=== PATIENT | female | born 1995 | race African-American/Black ===

== ENCOUNTER 2018-11-28 15:51 | Outpatient (CLI) | payer BC, OTHER | END 2018-11-28 16:42 | disposition home or self-care (01) | LOC: LC 15:51 | PROVIDERS: ATTEND Obstetrics & Gynecology | PROC: 4A1HXCZ Monitoring of Products of Conception, Cardiac Rate, External Approach (ICD-10-PCS; principal; 2018-11-28) | DX: O99.89 Other specified diseases and conditions complicating pregnancy, childbirth and the puerperium (principal); M54.9 Dorsalgia, unspecified; Z3A.24 24 weeks gestation of pregnancy ==

== ENCOUNTER 2019-02-24 14:48 | Outpatient (CLI) | payer BC, OTHER ==
--- NOTE | 2019-02-24 15:35 | Non Stress Test Report ---
Non Stress Test Datetime Report Generated by CPN: 02/24/2019 15:34 DEMOGRAPHIC EGA NST: 37.2 INDICATION Indication for Study: Intrauterine Growth Restriction; Ordered by Provider; Other VITAL SIGNS Temperature - NST: 98.5 RESP - NST: 16 (Annotations: Data stored by CPN on behalf of user) MONITORING Monitor Explained: Monitor Explained; Test Explained; Patient Verbalized Understanding Time on Monitor: 02/24/2019 14:58 Time off Monitor: 02/24/2019 15:25 NST Duration: 27 NST INTERVENTIONS NST Interventions: PO Hydration Physician Notified NST: C Najera CNM BABY A: [id number] BABY A Movement : Present Contraction Frequency : irregular FHR Baseline : 135 Accelerations : 15X15 Decelerations : None Variability : Moderate 6-25bpm NST Review: Meets Criteria for Reactive NST NST Results: Reactive NST REPORT Report Trigger: Send Report
== END 2019-02-24 15:28 | disposition home or self-care (01) ==
LOC: LC 14:48
PROVIDERS: ATTEND Obstetrics & Gynecology
PROC: 4A1HXCZ Monitoring of Products of Conception, Cardiac Rate, External Approach (ICD-10-PCS; principal; 2019-02-24)
DX: Z34.93 Encounter for supervision of normal pregnancy, unspecified, third trimester (principal)
CPT/HCPCS: 59025

== ENCOUNTER 2019-03-08 18:44 | Inpatient (IN) | payer BC, OTHER ==
[2019-03-08] MEDS ORDERED: RINGERS SOLUTION,LACTATED 1,000 ML IV PRN (19:31)
[2019-03-08] MEDS ORDERED: DINOPROSTONE 10 MG VAGINAL INSERT.SR PV SCH (19:45)
[2019-03-08 19:57] LABS: APPEARANCE,URINE SLIGHTLY-CLOUDY; BILIRUBIN,URINE NEGATIVE (NEGATIVE); COLOR,URINE YELLOW; GLUCOSE, URINE NEGATIVE (NEGATIVE); KETONES,URINE NEGATIVE (NEGATIVE); LEUKOCYTE ESTERASE,URINE TRACE (NEGATIVE); NITRITE,URINE NEGATIVE (NEGATIVE); PROTEIN,URINE 30 mg/dL (NEGATIVE); URINE SPECIFIC GRAVITY 1.026; UROBILINOGEN,URINE NEGATIVE mg/dL (<2.0)
[2019-03-08] MEDS ORDERED: DINOPROSTONE 10 MG VAGINAL INSERT.SR ONE (19:57)
[2019-03-08 20:12] LABS: URINE AMPHETAMINES SCREEN NEGATIVE; URINE BARBITURATES SCREEN NEGATIVE; URINE BENZODIAZEPINES SCREEN NEGATIVE; URINE COCAINE SCREEN NEGATIVE; URINE MARIJUANA (THC) SCREEN NEGATIVE; URINE METHADONE SCREEN NEGATIVE; URINE PHENCYCLIDINE SCREEN NEGATIVE
[2019-03-08 20:22] LABS: ABSOLUTE EOSINOPHILS # (AUTO) 0.2 10^3/uL (0.0-0.6); ABSOLUTE MONOCYTES (AUTO) 0.6 10^3/uL (0.1-1.4); ABSOLUTE NEUT (AUTO) 5.7 10^3/uL (1.7-8.2); BASOPHILS % (AUTO) 0.3 % (0-2); EOSINOPHILS % (AUTO) 1.9 % (0-6); HEMATOCRIT 28.6 % (36.0-47.0); HEMOGLOBIN 9.2 g/dL (12.0-15.5); LYMPHOCYTES % (AUTO) 23.2 % (13-45); MEAN CORPUSCULAR HEMOGLOBIN 28.5 pg (27.0-33.4); MEAN CORPUSCULAR HGB CONC 32.3 g/dL (32.0-36.0); MEAN CORPUSCULAR VOLUME 88 fl (80-97); MONOCYTES % (AUTO) 7.3 % (3-13); PLATELET COUNT 149 10^3/uL (150-450); RED BLOOD COUNT 3.23 10^6/uL (3.72-5.28); RED CELL DISTRIBUTION WIDTH 13.8 % (11.5-14.0); SEGMENTED NEUTROPHILS % (AUTO) 67.3 % (42-78); TOTAL CELLS COUNTED % (AUTO) 100 %; WHITE BLOOD COUNT 8.5 10^3/uL (4.0-10.5)
[2019-03-08] MEDS ORDERED: ACETAMINOPHEN 325 MG TABLET ONE (21:23)
[2019-03-08] MEDS ORDERED: ACETAMINOPHEN 325 MG TABLET PO ONE (21:30)
[2019-03-09] MEDS ORDERED: ZOLPIDEM TARTRATE 5 MG TABLET ONE (00:44)
[2019-03-09] MEDS ORDERED: OXYTOCIN/NORMAL SALINE 20 UNIT/1,000 ML RTUINJ ONE (07:00)
[2019-03-09] MEDS ORDERED: OXYTOCIN 10 UNIT/ML VIAL ONE (07:00)
[2019-03-09] MEDS ORDERED: MISOPROSTOL 0.2 MG TABLET ONE (07:00)
[2019-03-09] MEDS ORDERED: LIDOCAINE 1% INJ-PF (10 MG/ML) 30 ML SDV ONE (07:00)
--- NOTE | 2019-03-09 07:02 | Admission Physical ---
Datetime Report Generated by CPN: 03/09/2019 07:02 CURRENT ADMISSION Chief Complaint: Scheduled Induction of Labor Indication for Induction: IUGR Indication for Induction- Other: 3% Admit Impression : Term, Intrauterine ; No Active Labor; Induction of Labor Admit Plan: Admit to Unit; Initiate Labor Induction Protocol Admit Plan- Other: cervidil ALLERGIES Medication Allergies: No Medication Allergies: No Known Allergies (02/24/2019) Latex: No Latex Allergies OBSTETRICAL HISTORY EDC: 03/15/2019 00:00 : 2 Para: 1 Term: 1 : 0 SAB: 0 IAB: 0 Ectopic: 0 Livin Cesareans: 0 VBACs: 0 Multiple Births: 0 Gestational Diabetes: No Rh Sensitization: No Incompetent Cervix: No MEGHA: No Infertility: No ART Treatment: No Uterine Anomaly: No IUGR: No Hx Previous C/S: No Macrosomia: No Hx Loss/Stillborn: No PIH: No Hx : No Placenta Previa/Abruption: No Depression/PP Depression: No PTL/PROM: No Post Hemorrhage: No Current Procedures: Ultrasound SEE RECORDS Alcohol: No Marijuana : No Cocaine: No Other Illicit Drugs: No MEDICAL HISTORY Diabetes: No Blood Transfusion: No Pulmonary Disease (Asthma, TB): No Breast Disease: No Hypertension: No 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 Surgery: No Heart Disease: No Hosp/Surgery: No Autoimmune Disorder: No Anesthetic Complications: No Kidney Disease: No Abnormal Pap Smear: No Neuro/Epilepsy: No Psychiatric Disorders: No Other Medical Diseases: No Hepatitis/Liver Disease: No Significant Family History: No Varicosities/Phlebitis: No Trauma/Violence : No Thyroid Dysfunction: No INFECTIOUS HISTORY Gonorrhea: No Genital Herpes: Yes Chlamydia: No Tuberculosis: No Syphilis: No Hepatitis: No HIV/AIDS Exposure: No Rash or Viral Illness: No HPV: No PHYSICAL EXAM General: Normal HEENT: Normal Neurologic: Normal Thyroid: Normal Heart: Normal Lungs: Normal Breast: Normal Back: Normal Abdomen: Normal Genitourinary Exam: Normal Extremities: Normal DTRs: Normal Pelvic Type: Adequate Vital Signs: Reviewed VAGINAL EXAM Dilatation: 1 Effacement: 70 Station: -3 FETUS A EGA: 39.1 Monitoring: External US FHR- Baseline: 140 Variability: Moderate 6-25bpm Accelerations: 15X15 Decelerations: None FHR Category: Category I Estimated Weight (gm): 2300 Presentation: Vertex PLANS FOR LABOR AND DELIVERY Labor and Delivery: None Pain Management: Epidural Feeding Preference: Breast Benefit of Breast Feed Discussed: Yes INFORMED CONSENT Signature: with User ID: [email or web address]
[2019-03-09] MEDS ORDERED: ACETAMINOPHEN 325 MG TABLET PO ONE (09:20)
[2019-03-09] MEDS ORDERED: ACETAMINOPHEN 325 MG TABLET ONE (09:21)
[2019-03-09] MEDS ORDERED: PENICILLIN G-K 5 MILLION UNIT VIAL IV ONE (09:31)
[2019-03-09] MEDS ORDERED: PENICILLIN G-K 5 MILLION UNIT VIAL ONE ×2 (09:33→13:45)
[2019-03-09] MEDS ORDERED: NALBUPHINE HCL INJ 10 MG/1 ML AMPULE INJ ONE (10:02)
[2019-03-09] MEDS ORDERED: OXYTOCIN/NORMAL SALINE 20 UNIT/1,000 ML RTUINJ IV PRN ×2 (10:02→15:37)
[2019-03-09] MEDS ORDERED: NALBUPHINE HCL INJ 10 MG/1 ML AMPULE ONE (10:18)
[2019-03-09] MEDS ORDERED: PHENYLEPHRINE HCL INJ/PF 10 MG/1 ML SDV ONE (14:59)
[2019-03-09] MEDS ORDERED: FENTANYL CITRATE INJ/PF 100 MCG/2 ML AMPUL ONE (14:59)
[2019-03-09] MEDS ORDERED: BUPIVACAINE HCL 0.25 % INJ/PF (2.5 MG/1 ML) 30 ML VIAL ONE (15:00)
[2019-03-09] MEDS ORDERED: EPHEDRINE SULFATE INJ 50 MG/1 ML AMPULE ONE (15:00)
[2019-03-09] MEDS ORDERED: FENTANYL/BUPIVACAINE/NS/PF 0 MCG/0 ML RTUINJ EPI ONE (15:00)
[2019-03-09] MEDS ORDERED: ZOLPIDEM TARTRATE 5 MG TABLET PO PRN (15:37)
[2019-03-09] MEDS ORDERED: DIPH/PERTUSS(ACELL)/TETANUS VAC/PF 0.5 ML SYR (>=10YO) IM PRN (15:37)
[2019-03-09] MEDS ORDERED: BENZOCAINE/MENTHOL AEROSOL SPRAY 56 ML TOP PRN (15:37)
[2019-03-09] MEDS ORDERED: NA PHOS,M-B/NA PHOS,DI-BA (ADULT) 133 ML ENEMA PR PRN (15:37)
[2019-03-09] MEDS ORDERED: PROMETHAZINE HCL 25 MG TABLET PO PRN (15:37)
[2019-03-09] MEDS ORDERED: MAGNESIUM HYDROXIDE SUSP 30 ML UDCUP PO PRN (15:37)
[2019-03-09] MEDS ORDERED: DIPHENHYDRAMINE HCL 25 MG CAPSULE PO PRN (15:37)
[2019-03-09] MEDS ORDERED: MEASLES,MUMPS&RUBELLA VACC/PF 0.5 ML VIAL SUBCUT PRN (15:37)
[2019-03-09] MEDS ORDERED: ACETAMINOPHEN WITH CODEINE #3 TABLET PO PRN (15:37)
[2019-03-09] MEDS ORDERED: PROMETHAZINE HCL INJ 25 MG/1 ML VIAL IV PRN (15:37)
[2019-03-09] MEDS ORDERED: DIBUCAINE 1% OINTMENT 56 GM TP PRN (15:37)
[2019-03-09] MEDS ORDERED: ACETAMINOPHEN 650 MG SUPP.RECT PR PRN (15:37)
[2019-03-09] MEDS ORDERED: PSEUDOEPHEDRINE HCL 30 MG TABLET PO PRN (15:37)
[2019-03-09] MEDS ORDERED: GLYCERIN/WITCH HAZEL LEAF 1 EACH MED..WIPE TP PRN (15:37)
[2019-03-09] MEDS ORDERED: PROMETHAZINE HCL 25 MG SUPP.RECT PR PRN (15:37)
[2019-03-09] MEDS: DOCUSATE SODIUM 100 MG CAPSULE PO SCH (20:21)
[2019-03-09] MEDS: FERROUS SULFATE 325 MG TABLET PO SCH (20:21)
[2019-03-09] MEDS ORDERED: IBUPROFEN 800 MG TABLET ONE (20:56)
[2019-03-09] MEDS: IBUPROFEN 800 MG TABLET PO SCH (21:01)
[2019-03-09] MEDS: FAMOTIDINE 20 MG TABLET PO SCH (21:07)
[2019-03-10] MEDS: ACETAMINOPHEN WITH CODEINE #3 TABLET PO PRN ×3 (02:17→17:39)
[2019-03-10] MEDS: IBUPROFEN 800 MG TABLET PO SCH ×3 (05:29→21:21)
[2019-03-10 08:00] LABS: MEAN CORPUSCULAR HEMOGLOBIN 28.3 pg (27.0-33.4); MEAN CORPUSCULAR VOLUME 89 fl (80-97); PLATELET COUNT 174 10^3/uL (150-450); RED BLOOD COUNT 3.17 10^6/uL (3.72-5.28); WHITE BLOOD COUNT 11.5 10^3/uL (4.0-10.5)
--- NOTE | 2019-03-10 08:02 | Delivery Summary ---
Del Sum A-C Datetime Report Generated by CPN: 03/10/2019 08:01 DELIVERY PERSONNEL DELIVERY PERSONNEL: [id number] Nurse Fire Hydrant Operator Certified:: Lindy Lewis CNM Labor and Delivery Nurse:: Teetee Hutton RN Nursery Nurse:: Carrie Marquez RNC Director Music/ESTIMATOR PRINTING: Alejandrina Escobar, EXPERIENCE SPECIALIST MATERNAL INFORMATION Delivery Anesthesia: None Medications After Delivery: Pitocin Bolus-Please Comment Meds After Delivery Comment: Pitocin 20 units in 1 L NS bolusing per order Delivery QBL: 125 Maternal Complications: None Provider Comments: Pt complete and pushed x 1, when I entered room vtx of on perineum, I delivered baby from OA to RENETTA over intact perineum, cord clamped and cut after 2 minutes by dad, spont delivery of grossly nl intact placenta, small skin abrasion on vaginal side wall, no sutures needed, FFFM, baby and mom remains in recovery in stable condition, cord blood to lab (Annotations: Data stored by CPN on behalf of user) LABOR SUMMARY EDC: 03/15/2019 00:00 No. Babies in Womb: 1 Attempted: No Labor Anesthesia: IV Sedation LABOR INFORMATION Reason for Induction: Intrauterine Growth Retardation Onset of Labor: 03/09/2019 14:35 Complete Dilatation: 03/09/2019 15:17 Cervical Ripening Agents: Cervidil Oxytocin: Induction Group B Beta Strep: pos in urine Antibiotics # of Doses: 2 Antibiotics Time of Last Dose: 1352 Name of Antibiotic Given: PCN Steroids Given: None Reason Steroids Not Administered: Not Applicable MEMBRANES Membranes Rupture Method: Spontaneous Rupture of Membranes: 03/09/2019 14:35 Length of Rupture (hr): 0.75 Amniotic Fluid Color: Clear Amniotic Fluid Amount: Moderate Amniotic Fluid Odor: Normal STAGES OF LABOR Stage 1 hr: 0 Stage 1 min: 42 Stage 2 hr: 0 Stage 2 min: 3 Stage 3 hr: 0 Stage 3 min: 4 Total Time in Labor hr: 0 Total Time in Labor min: 49 VAGINAL DELIVERY Episiotomy: None Laceration #1: None Laceration Extension #1: N/A Laceration Repair: Not Applicable Sponge Count Correct: N/A Sharps Count Correct: N/A CSECTION DELIVERY Primary Indication: N/A Secondary Indication: N/A CSection Incidence: N/A Labor: N/A Elective: N/A CSection Incision: N/A BABY A INFORMATION Delivery Date/Time: 03/09/2019 15:20 Method of Delivery: Vaginal Method of Delivery: Vaginal Born in Route : No : N/A Forceps: N/A Vacuum Extraction: N/A Shoulder Dystocia : No PRESENTATION/POSITION BABY A Presentation: Cephalic Presentation: Cephalic Cephalic Presentation: Vertex Vertex Position: Left Occipital Anterior Breech Presentation: N/A PLACENTA INFORMATION BABY A Placenta Delivery Time : 03/09/2019 15:24 Placenta Method of Delivery: Spontaneous Placenta Status: Delivered SCORES BABY A Heart Rate 1 min: >100 bpm Resp Effort 1 min: Good Cry Reflex Irritability 1 min: Cough or Sneeze or Pulls Away Muscle Tone 1 min: Active Motion Color 1 min: Body [place], Extremities Blue Resuscitation Effort 1 min: Tactile Stimulation SCORE 1 MIN: 9 Heart Rate 5 min: >100 bpm Resp Effort 5 min: Good Cry Reflex Irritability 5 min: Cough or Sneeze or Pulls Away Muscle Tone 5 min: Active Motion Color 5 min: Completely [place] Resuscitation Effort 5 min: Tactile Stimulation SCORE 5 MIN: 10 INFANT INFORMATION BABY A Gestational Age at Delivery: 39.1 Gestational Status: Full Term- 39- 40.6 Weeks Outcome : Liveborn Infant Condition : Stable Infant Sex: Male Infant Sex: Male IDENTIFICATION BABY A Infant Verification Date/Time: 03/09/2019 15:53 ID Band Number: [id number] Mother's Name Verified: Yes Infant RN Verifying : CVidhya Anni, RN Joe Kapadia, RN WEIGHT/LENGTH BABY A Infant Birthweight (gm): 2787 Infant Weight (lb): 6 Weight (oz): 2 Length (in): 19.25 Length (cm): 48.90 CORD INFORMATION BABY A No. Cord Vessels: 3 Nuchal Cord : N/A Cord Blood Taken: Yes-For Eval (Mom's Blood Type - or O+) Infant Suction: None ASSESSMENT BABY A Infant Complications: Multiple Variable Decels; Other Complications- Other: IUGR Physical Findings at Delivery: Within Normal Limits Respirations: Appears Normal Skin to Skin: Yes Electrotyper Apprentice/ALS Called : No Care By: Thomas Marquez, RNC Transferred To: Remains with Mother BABY B INFORMATION : N/A
[2019-03-10] MEDS: DOCUSATE SODIUM 100 MG CAPSULE PO SCH ×2 (09:33→17:51)
[2019-03-10] MEDS: SENNOSIDES/DOCUSATE 8.6-50 MG 1 EACH TABLET PO SCH (09:33)
[2019-03-10] MEDS: FERROUS SULFATE 325 MG TABLET PO SCH ×2 (09:33→17:39)
[2019-03-10] MEDS: FAMOTIDINE 20 MG TABLET PO SCH ×2 (09:47→21:21)
[2019-03-10] MEDS: PRENATAL VITAMIN W DHA CAPSULE PO SCH (09:48)
--- NOTE | 2019-03-10 14:43 | PDOC PROGRESS REPORT ---
Subjective-OB Progress Note for:: 03/10/19 Subjective: 24yo G2 now P2 s/p ppd1. Ambulating, and voiding without difficulty. Denies any concerns today. Physical Exam (OB) Vital Signs: Temp Pulse Resp BP Pulse Ox 98.4 F 86 16 122/72 100 03/10/19 07:29 03/10/19 07:29 03/10/19 07:29 03/10/19 07:29 03/10/19 07:29 Intake & Output 03/09/19 03/10/19 03/11/19 06:59 06:59 06:59 Intake Total 1200 300 Balance 1200 300 Weight 79.8 kg - General General Appearance: Appears well In distress: None - PIH/Pre-Eclampsia DTR's: 2 + Clonus: Negative Headache: Absent Epigastric Pain: No Visual Changes: No - Episiotomy/Laceration Site Condition: N/A - Lochia Lochia Amount: Scant < 10 ml Lochia Color: Rubra/Red - Abdomen Description: Soft, Round Hernia Present: No Fundal Description: Firm Fundal Height: u/u - u/2 - Respiratory Respiratory Status: No respiratory distress - Extremities Upper extremity: Normal inspection Lower extremities: Normal inspection - Neurological Cognition: Normal Orientation: AAOx4 - Psychological Associated symptoms: Normal affect, Normal mood Objective-Diagnostic Laboratory: 03/10/19 07:23 03/10/19 07:23 WBC 11.5 H RBC 3.17 L Hgb 9.0 L Hct 28.0 L MCV 89 MCH 28.3 MCHC 32.0 RDW 14.0 Plt Count 174 Assessment and Plan(PN) - Assessment and Plan (1) Anemia complicating , third trimester Is this a current diagnosis for this admission?: Yes Plan: Continue to monitor. increase dietary iron and FeSO4 BID. (2) Delivery normal Is this a current diagnosis for this admission?: Yes Plan: routine pp care - Time Spent with Patient Time with patient: Less than 15 minutes Medications reviewed and adjusted accordingly: Yes - Disposition Anticipated Discharge: Home Within: within 24 hours
[2019-03-11] MEDS: ACETAMINOPHEN WITH CODEINE #3 TABLET PO PRN (04:41)
[2019-03-11] MEDS: IBUPROFEN 800 MG TABLET PO SCH (04:47)
[2019-03-11 08:16] VITALS: BP 119/69
[2019-03-11 08:35] LABS: HSV-I IGG AB <0.91 index (0.00-0.90)
[2019-03-11] MEDS: DOCUSATE SODIUM 100 MG CAPSULE PO SCH (09:50)
[2019-03-11] MEDS: FERROUS SULFATE 325 MG TABLET PO SCH (09:50)
[2019-03-11] MEDS: FAMOTIDINE 20 MG TABLET PO SCH (09:53)
[2019-03-11] MEDS: SENNOSIDES/DOCUSATE 8.6-50 MG 1 EACH TABLET PO SCH (09:53)
[2019-03-11] MEDS: PRENATAL VITAMIN W DHA CAPSULE PO SCH (09:53)
[2019-03-11] MEDS ORDERED: IBUPROFEN 800 MG TABLET PO SCH (10:00)
--- NOTE | 2019-03-11 10:19 | PDOC DISCHARGE SUMMARY ---
Final Diagnosis Discharge Date: 03/11/19 Discharge Data - Discharge Medication Prescriptions: Ibuprofen [Motrin 800 mg Tablet] 800 mg PO TID #90 tablet Home Medications: Valacyclovir HCl [Valtrex] 1 tab PO DAILY 02/24/19 Ibuprofen [Motrin 800 mg Tablet] 800 mg PO TID #90 tablet 03/11/19 Reason(s) for Admission: Onset of Labor Intrapartum Procedure(s): Spontaneous Vaginal Delivery - Diagnosis Test Laboratory: Temp Pulse Resp BP Pulse Ox 97.6 F 82 16 119/69 100 03/11/19 09:18 03/11/19 09:18 03/11/19 09:18 03/11/19 08:16 03/11/19 09:18 03/08/19 03/08/19 03/10/19 19:10 20:15 07:23 RBC 3.23 L 3.17 L Hgb 9.2 L 9.0 L Hct 28.6 L 28.0 L Urine Opiates Screen NEGATIVE - Discharge information/Instructions Discharge Activity: Activity As Tolerated, Balance Activity w/Rest, Pelvic Rest, No tub bath, Walk Frequently Discharge Diet: Regular Disposition: HOME, SELF-CARE Follow up with: [facility] in: 4
== END 2019-03-11 13:15 | disposition home or self-care (01) | DRG 807 ==
LOC: LR 18:44 → 2S 03-09 18:53
PROVIDERS: ADMIT Obstetrics & Gynecology; ATTEND Obstetrics & Gynecology
PROC: 10E0XZZ Delivery of Products of Conception, External Approach (ICD-10-PCS; principal; 2019-03-09)
DX: O36.5930 Maternal care for other known or suspected poor fetal growth, third trimester, not applicable or unspecified (principal); Z37.0 Single live birth; O99.824 Streptococcus B carrier state complicating childbirth; O76 Abnormality in fetal heart rate and rhythm complicating labor and delivery; Z3A.39 39 weeks gestation of pregnancy
CPT/HCPCS: 36415; 80307; 81005; 85025; 85027; 86592; 86695; 86850; 86900; 86901; J2300; J2370; J2540; J2590; J3010; J3490

== ENCOUNTER 2020-05-01 10:25 | Emergency (ER) | payer BC, OTHER ==
[2020-05-01] MEDS ORDERED: NORMAL SALINE 1000 ML 1,000 ML IV ONE (10:43)
[2020-05-01] MEDS ORDERED: METOCLOPRAMIDE HCL INJ/PF 10 MG/2 ML SDV IV ONE (10:43)
[2020-05-01] MEDS ORDERED: DIPHENHYDRAMINE HCL 50 MG/ML VIAL IV ONE (10:43)
--- NOTE | 2020-05-01 10:45 | ER Document Report ---
ED Medical Screen (RME) - General Chief Complaint: Nausea Stated Complaint: POSSIBLE DEHYDRATION/NAUSEA Time Seen by Provider: 05/01/20 10:38 Primary Care Provider: PATRICK VALERA MD [Primary Care Provider] - Follow up as needed TRAVEL OUTSIDE OF THE [place] IN LAST 30 DAYS: No - HPI Notes: 05/01/20 10:44 25-year-old female to the emergency department with complaints of nausea and vomiting for the past week. She states she is about 10 weeks . She is a G3, P2. She states that she has not been able to keep anything down all week long. She states that she has tried to eat multiple times withdrawal comes up. Now fluids are coming up as well. [facility]. She has had a confirmed IUP on ultrasound with this . She states they put her on promethazine. She states that even the promethazine is not working. She denies any fevers or chills. She denies any urinary complaints. She denies any vaginal bleeding. She denies any abdominal pain. On brief medical screening exam patient has a nontender abdomen to palpation. I performed a brief medical screening exam on the patient determined that the patient needs further evaluation and management by main side provider. I have placed initial orders to help expedite care. - Related Data Allergies/Adverse Reactions: No Known Allergies Allergy (Verified 02/24/19 15:06) Physical Exam - Vital signs Vitals: Temp Pulse Resp BP Pulse Ox 98.9 F 83 18 129/69 H 100 05/01/20 10:32 05/01/20 10:32 05/01/20 10:32 05/01/20 10:32 05/01/20 10:32 Course - Vital Signs Vital signs: Temp Pulse Resp BP Pulse Ox 98.9 F 83 18 129/69 H 100 05/01/20 10:32 05/01/20 10:32 05/01/20 10:32 05/01/20 10:32 05/01/20 10:32 Doctor's Discharge - Discharge Referrals: PATRICK VALERA MD [Primary Care Provider] - Follow up as needed
--- NOTE | 2020-05-01 11:07 | ER Document Report ---
ED GI/ - General Chief Complaint: Nausea/Vomiting Stated Complaint: POSSIBLE DEHYDRATION/NAUSEA Time Seen by Provider: 05/01/20 10:38 Primary Care Provider: [facility] [Provider Group] - Follow up as needed Mode of Arrival: Ambulatory Information source: Patient Notes: Patient is currently 10 weeks G3, P2. Patient reports nausea and vomiting for the past week. Patient denies any vaginal bleeding patient. Pt denies any pelvic pain. Patient denies any urinary symptoms. Patient has been taking Phenergan at home without improvement of her symptoms. TRAVEL OUTSIDE OF THE [place] IN LAST 30 DAYS: No - HPI Patient complains to provider of: Vomiting. No: Abdominal pain, Pelvic pain Onset: Last week Timing/Duration: Persistent Quality of pain: No pain Menstrual period history: Associated symptoms: Vomiting. 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 denies: Fever EENT: No symptoms reported Cardiovascular: No symptoms reported. denies: Chest pain Respiratory: No symptoms reported. denies: Cough Gastrointestinal: Vomiting. denies: Abdominal pain, Nausea Genitourinary: No symptoms reported. denies: Dysuria Female Genitourinary: . denies: Vaginal discharge, Vaginal bleeding Musculoskeletal: No symptoms reported. denies: Back pain Skin: No symptoms reported Hematologic/Lymphatic: No symptoms reported Neurological/Psychological: No symptoms reported Physical Exam - Vital signs Vitals: Temp Pulse Resp BP Pulse Ox 98.9 F 83 18 129/69 H 100 05/01/20 10:32 05/01/20 10:32 05/01/20 10:32 05/01/20 10:32 05/01/20 10:32 - Notes Notes: PHYSICAL EXAMINATION: GENERAL: Well-appearing and in no acute distress. HEAD: Atraumatic, normocephalic. EYES: sclera anicteric, conjunctiva are normal. ENT: nares patent. Moist mucous membranes. NECK: Normal range of motion, supple LUNGS: CTAB and equal. No wheezes rales or rhonchi. HEART: Regular rate and rhythm without murmurs ABDOMEN: Soft, nontender, normal bowel sounds, no guarding. EXTREMITIES: Normal range of motion, no pitting edema. No cyanosis. BACK: No midline tenderness, no step-off or deformity. No CVA tenderness NEUROLOGICAL: Cranial nerves grossly intact. Normal speech. PSYCH: Normal mood, normal affect. SKIN: Warm, Dry, normal turgor, no rashes or lesions noted Course - Re-evaluation Re-evalutation: 05/01/20 12:30 Patient reports feeling better at this time, patient denies any nausea or vomiting, p.o. fluids provided. 05/01/20 13:14 Patient has tolerated oral fluids without emesis and reports feeling better at this time. Patient denies any urinary symptoms. Patient denies any vaginal bleeding or discharge. We will plan for discharge at this time with outpatient follow-up with her primary doctor. - Vital Signs Vital signs: Temp Pulse Resp BP Pulse Ox 98.0 F 82 18 124/70 100 05/01/20 13:27 05/01/20 13:27 05/01/20 13:27 05/01/20 13:27 05/01/20 13:27 - Laboratory Result Diagrams: 05/01/20 11:30 05/01/20 11:30 Laboratory results interpreted by me: 05/01/20 05/01/20 05/01/20 11:30 11:30 12:44 RDW 14.2 H Sodium 136.3 L Glucose 72 L Urine Protein 30 H Urine Ketones TRACE H Urine Urobilinogen 2.0 H Leukocyte Esterase Rfl SMALL H Labs- All tests 24 hr 05/01/20 05/01/20 05/01/20 11:30 11:30 12:44 WBC 8.3 RBC 4.23 Hgb 12.4 Hct 38.1 MCV 90 MCH 29.4 MCHC 32.6 RDW 14.2 H Plt Count 237 Lymph % (Auto) 22.7 [place] % (Auto) 5.1 Eos % (Auto) 1.3 Baso % (Auto) 0.3 Absolute Neuts (auto) 5.9 Absolute Lymphs (auto) 1.9 Absolute Monos (auto) 0.4 Absolute Eos (auto) 0.1 Absolute Basos (auto) 0.0 Seg Neutrophils % 70.6 Sodium 136.3 L Potassium 4.2 Chloride 104 Carbon Dioxide 23 Anion Gap 9 BUN 10 Creatinine 0.67 Est GFR ( Amer) > 60 Est GFR (MDRD) Non-Af > 60 Glucose 72 L Calcium 10.2 Magnesium 2.1 Total Bilirubin 0.6 Direct Bilirubin 0.0 Neonat Total Bilirubin Not Reportable Neonat Direct Bilirubin Not Reportable Neonat Indirect Bili Not Reportable AST 17 ALT 10 Alkaline Phosphatase 65 Total Protein 7.9 Albumin 4.6 Urine Color YELLOW Urine Appearance SLIGHTLY-CLOUDY Urine pH 7.0 Ur Specific [place] 1.028 Urine Protein 30 H Urine Glucose (UA) NEGATIVE Urine Ketones TRACE H Urine Blood NEGATIVE Urine Nitrite (Reflex) NEGATIVE Urine Bilirubin NEGATIVE Urine Urobilinogen 2.0 H Leukocyte Esterase Rfl SMALL H Urine RBC (Auto) 1 U Hyaline Cast (Auto) 1 Urine WBC (Reflex) 5 Squamous Epi Cells Auto 18 Urine Mucus (Auto) MANY Urine Ascorbic Acid NEGATIVE Discharge - Discharge Clinical Impression: Vomiting during , Dehydration Condition: Stable Disposition: HOME, SELF-CARE Instructions: Intravenous (IV) Fluids ([facility]), Vomiting ([facility]) Additional Instructions: Return immediately for any new or worsening symptoms Followup with your primary care provider, call tomorrow to make a followup appointment Increase oral fluids and stay well-hydrated Forms: Return to Work Referrals: [facility] [Provider Group] - Follow up as needed
[2020-05-01 11:45] LABS: ABSOLUTE EOSINOPHILS # (AUTO) 0.1 10^3/uL (0.0-0.6); ABSOLUTE LYMPHOCYTES (AUTO) 1.9 10^3/uL (0.5-4.7); ABSOLUTE MONOCYTES (AUTO) 0.4 10^3/uL (0.1-1.4); ABSOLUTE NEUT (AUTO) 5.9 10^3/uL (1.7-8.2); BASOPHILS % (AUTO) 0.3 % (0-2); EOSINOPHILS % (AUTO) 1.3 % (0-6); HEMATOCRIT 38.1 % (36.0-47.0); HEMOGLOBIN 12.4 g/dL (12.0-15.5); LYMPHOCYTES % (AUTO) 22.7 % (13-45); MEAN CORPUSCULAR HEMOGLOBIN 29.4 pg (27.0-33.4); MEAN CORPUSCULAR HGB CONC 32.6 g/dL (32.0-36.0); MEAN CORPUSCULAR VOLUME 90 fl (80-97); MONOCYTES % (AUTO) 5.1 % (3-13); PLATELET COUNT 237 10^3/uL (150-450); RED BLOOD COUNT 4.23 10^6/uL (3.72-5.28); RED CELL DISTRIBUTION WIDTH 14.2 % (11.5-14.0); SEGMENTED NEUTROPHILS % (AUTO) 70.6 % (42-78); TOTAL CELLS COUNTED % (AUTO) 100 %; WHITE BLOOD COUNT 8.3 10^3/uL (4.0-10.5)
[2020-05-01 12:01] LABS: ALBUMIN 4.6 g/dL (3.5-5.0); ALKALINE PHOSPHATASE 65 U/L (38-126); ANION GAP 9 (5-19); ASPARTATE AMINO TRANSFERASE 17 U/L (14-36); BILIRUBIN,TOTAL 0.6 mg/dL (0.2-1.3); BLOOD UREA NITROGEN 10 mg/dL (7-20); CALCIUM 10.2 mg/dL (8.4-10.2); CARBON DIOXIDE 23 mmol/L (22-30); CHLORIDE 104 mmol/L (98-107); GLUCOSE 72 mg/dL (75-110); POTASSIUM 4.2 mmol/L (3.6-5.0); TOTAL PROTEIN 7.9 g/dL (6.3-8.2)
[2020-05-01 13:05] LABS: APPEARANCE,URINE SLIGHTLY-CLOUDY; BILIRUBIN,URINE NEGATIVE (NEGATIVE); COLOR,URINE YELLOW; GLUCOSE, URINE NEGATIVE (NEGATIVE); KETONES,URINE TRACE mg/dL (NEGATIVE); PROTEIN,URINE 30 mg/dL (NEGATIVE); URINE SPECIFIC GRAVITY 1.028
[2020-05-01 13:34] VITALS: BP 124/70
== END 2020-05-01 13:34 | disposition home or self-care (01) ==
LOC: ER 10:25
DX: O26.91 Pregnancy related conditions, unspecified, first trimester (principal); E86.0 Dehydration; O21.9 Vomiting of pregnancy, unspecified; Z3A.10 10 weeks gestation of pregnancy
CPT/HCPCS: 99284; 96361; 96374; 96375; 36415; 87086; 83735; 85025; 87088; 80053; 81001; J1200; J2765; J7030